=== PATIENT | female | born 1980 | race Hispanic/Latino ===

== ENCOUNTER 2022-11-06 05:53 | Day surgery (SDC) | payer BC ==
[2022-11-02 13:45] LABS: BASOPHILS # (AUTO) 0.02 K/uL (0.00-0.20); BASOPHILS % (AUTO) 0.3 % (0.0-5.0); EOSINOPHILS # (AUTO) 0.05 K/uL (0.00-0.70); EOSINOPHILS % (AUTO) 0.7 % (0.0-8.0); HEMATOCRIT 38.9 % (36-48); IMMATURE GRANULOCYTE ABSOLUTE 0.02 K/uL (0-1); LYMPHOCYTES # (AUTO) 3.4 K/uL (1.0-4.8); LYMPHOCYTES % (AUTO) 46.2 % (21.0-51.0); MEAN CORPUSCULAR HEMOGLOBIN 26.8 pg (27.0-33.0); MEAN CORPUSCULAR HGB CONC 32.9 g/dL (32.0-36.0); MEAN CORPUSCULAR VOLUME 81.6 fL (79-99); MONOCYTES # (AUTO) 0.3 K/uL (0.1-1.0); MONOCYTES % (AUTO) 4.6 % (3.0-13.0); NEUTROPHILS # (AUTO) 3.6 K/uL (1.8-7.7); NEUTROPHILS % (AUTO) 47.9 % (40.0-77.0); PLATELET COUNT (AUTO) 271 K/uL (130-400); RED BLOOD CELL COUNT(AUTO) 4.77 MIL/uL (4.00-5.50); RED CELL DISTRIBUTION WIDTH 13.4 % (11.0-15.5); WHITE BLOOD COUNT (AUTO) 7.4 K/uL (4.8-10.8)
[2022-11-02 14:42] VITALS: BP 103/62; PULSE 88; RESP 20
[~2022-11-06] VITALS: Ht 165.1 cm; Wt 77.7 kg
[2022-11-06] VITALS (18 sets, daily range): BP systolic 83–111; BP diastolic 39–62; PULSE 68–92; RESP 11–20
[~2022-11-06 05:53] MED LIST: MOUNJARO SQ; PROG200C11 PO
[2022-11-06] MEDS ORDERED: CALDOLOR 800MG+NS 250ML 250 ML IV ONE ×2 (06:14→10:30)
[2022-11-06] MEDS ORDERED: CEFAZOLIN SODIUM 2 GM VIAL ONE (06:22)
[2022-11-06] MEDS ORDERED: 0.9%NACL 1000ML 0 ML IV ONE (06:22)
[2022-11-06] MEDS ORDERED: LACTATED RINGERS 1000ML 1,000 ML IV ONE (06:32)
[2022-11-06] MEDS ORDERED: LIDOCAINE PF 100MG/5ML (2%) SYRINGE 5ML ONE (07:04)
[2022-11-06] MEDS ORDERED: DEXAMETHASONE SOD PHOSPHATE 10MG/ML 1ML VIAL ONE (07:04)
[2022-11-06] MEDS ORDERED: MIDAZOLAM HCL 1 MG/ML 2ML VIAL ONE (07:05)
[2022-11-06] MEDS ORDERED: FENTANYL CITRATE PF 50 MCG/1 ML 2ML VIAL ONE (07:05)
[2022-11-06] MEDS ORDERED: ONDANSETRON 4MG INJ ONE (07:05)
[2022-11-06] MEDS ORDERED: PROPOFOL 10 MG/ML 20ML VIAL IV ONE (07:05)
[2022-11-06] MEDS ORDERED: TIRZ2.5P SQ (10:39)
[2022-11-06 16:35] LABS: CREATININE 0.9 mg/dL (0.5-1.5); POTASSIUM 3.5 mmol/L (3.5-5.1)
== END 2022-11-06 09:25 | disposition home or self-care (01) ==
LOC: DAH 05:53
PROVIDERS: ATTEND Obstetrics & Gynecology
DX: N92.1 Excessive and frequent menstruation with irregular cycle (principal); Z20.822 Contact with and (suspected) exposure to COVID-19; N84.0 Polyp of corpus uteri; N81.4 Uterovaginal prolapse, unspecified; Z98.51 Tubal ligation status; Z83.3 Family history of diabetes mellitus; Z82.0 Family history of epilepsy and other diseases of the nervous system
CPT/HCPCS: 84703 ×2; 85025; 86850 ×2; 86900 ×2; 86901 ×2; 87426; 36415 ×2; 58563; 80048; A6260; A4663; J7030; A4351; A4355; J7120; J3010; J1100; J2001; J2250; J2704; J2405; J1741; J0690; A4215; A4223; A4222; A4221; A4600; J3490

== ENCOUNTER → 2023-11-13 | Outpatient (CLI) | payer BC ==
[~2023-11-13] MED LIST changes: -MOUNJARO SQ; +TIRZ2.5P SQ
== END | disposition home or self-care (01) ==
LOC: RAH 15:31
PROVIDERS: ATTEND Nurse Practitioner Family
DX: M25.562 Pain in left knee (principal)
CPT/HCPCS: 73721